=== PATIENT | male | born 1970 | race Asian ===

== ENCOUNTER 2017-01-23 10:21 | Inpatient (IN) | payer MEDICARE, OTHER ==
[~2017-01-23] VITALS: Ht 167.6 cm; Wt 104.3 kg
[2017-01-23 12:00] VITALS: BP 157/93
--- NOTE | 2017-01-23 13:04 | History & Physical ---
History and Physical History & Physicial Vital Signs -Extended Height: 66 inches Weight: 230.5 pounds Temperature: 98.6 degrees F (oral) Pulse rate: 88 /min Pulse rhythm: regular Respirations: 12 /min O2 Sat: 94% Blood Pressure: 155/94 mm Hg Calculations Body Mass Index: 37.34 Body Surface Area (m2): 2.13 History of Present Illness Hx. Source: patient Primary complaint: Patient is here for follow up and evaluation Duration: 3-4 days Trend of sx: waxes and wanes Fever: low grade Treatment: Tylenol Trend of Tx: temporary relief Additional HPI: 46 year old male patient presents today complaining of upper quadrant pain, left testicular pain, lower back pain, chills and fever after urinating. He admits to fever getting worse after voiding. he had an extensive work up including CT and testicular ultrasound which were notable for UVJ stone and mild hydronephrosis. Active Medications (reviewed today): TAMSULOSIN HCL 0.4 MG CAPS (TAMSULOSIN HCL) 1 tab po qd OXYCODONE-ACETAMINOPHEN 10-325 MG ORAL TABS (OXYCODONE-ACETAMINOPHEN) 1 tab q6hr FLUTICASONE PROPIONATE 50 MCG/ACT SUSP (FLUTICASONE PROPIONATE) 2 spray to each nostrils daily Current Allergies: No known allergies Past History Past Medical History (reviewed - no changes required): cornea degeneration sinus disease left hydroureteronephrosis with small calculus left obstructive sleep apnea-off cpap therapy hx migraines Asthma (methacholine positive) sinusitis Surgical History (reviewed - no changes required): laser surgery x 10 PRK left eye x 2 PRK right eye x 2 lasic on right eye x 3 lasic/prk x 2 right eye 06/2011 cervical fusion Tonsilectomy and uvulopalatoplasty Deviated septum Family History (reviewed - no changes required): Jvhgik-vevka-sijtt cancer, Diabetes Mellitus Qvwocd-kyumr-ohdymau grandmother (maternal)-gastro disease uncle (paternal) alzheimer's disease Social History (reviewed - no changes required): single; no children; lives with mother; patient is disabled Risk Factors: Years Since Last Quit: 9 Caffeine use: 1 drinks per day Alcohol use: yes Previous Tobacco Use: Signed On - 12/13/2016 Smoked Tobacco Use: Former smoker Cigarettes: Yes -- 1 1/2 pack(s) per day, Year started: 1983 Year quit: 2007 Years Since Last Quit: 9 years, 5 months, 25 days Caffeine use: 1 drinks per day Review of Systems General: see HPI Eyes: cornea disorder Ear/Nose/Throat: See HPI Cardiovascular: Denies chest pain, palpitations, syncope, dyspnea on exertion, orthopnea, PND, peripheral edema Respiratory: Shortness of breath sleep apnea Gastrointestinal: Denies nausea, vomiting, diarrhea, constipation, change in bowel habits, abdominal pain, melena, hematochezia, jaundice Genitourinary: See HPI Musculoskeletal: cervical disc disease Skin: denies rash, itching, dryness, suspicious lesions Neurologic: denies transient paralysis, weakness, paresthesias, seizures, syncope, tremors, vertigo Psychiatric: denies depression, anxiety, memory loss, mental disturbance, suicidal ideation, hallucinations, paranoia Endocrine: denies cold intolerance, heat intolerance, polydipsia, polyphagia, polyuria, weight change Hematologic/Lymphatic: denies abnormal bruising, bleeding, enlarged lymph nodes Allergic/Immunologic: denies urticaria, hay fever, persistent infections, HIV exposure Physical Exam General Appearance: well nourished, well hydrated, no acute distress obese Respiratory Respiratory Effort: no intercostal retractions or use of accessory muscles Palpation: normal fremitus Auscultation: no rales, rhonchi, or wheezes Cardiovascular Palpation: no thrill or palpable murmurs, no displacement of PMI Auscultation: S1, S2, no murmur, rub, or gallop Carotid arteries: pulses 2+, symmetric, no bruits Peripheral Circulation: no cyanosis, clubbing, edema, or varicosities Gastrointestinal Abdomen: soft, non-tender, no masses, bowel sounds normal Liver and Spleen: no flank tenderness [Lab Results Review] Assessment New Problems: Dx of HYDRONEPHROSIS (ICD-591) Onset: 01/23/2017 Dx of Fever with chills (ICD-780.60) Onset: days Dx of Chills (ICD-780.64) Onset: days Dx of Abdominal pain, right upper quadrant (ICD-789.01) Onset: days Plan New medications: TAMSULOSIN HCL 0.4 MG CAPS -- 1 tab po qd OXYCODONE-ACETAMINOPHEN 10-325 MG ORAL TABS -- 1 tab q6hr Additional Plan Comments: MAINTAIN HYDRATION HAS PAIN MEDICATIONS WILL NEED UROLOGY FOLLOW UP IMAGING REVIEWED FROM [facility] CHECK RENAL US FOR HYDRONEPHROSIS MARU MORENO Jan 23, 2017 13:04
[2017-01-23 14:46] LABS: BASOPHILS % (AUTO) 1.7 % (0.0-2.0); EOSINOPHILS % (AUTO) 1.3 % (0.0-3.0); LYMPHOCYTES % (AUTO) 24.1 % (20.0-45.0); MEAN CORPUSCULAR HEMOGLOBIN 32.8 PG (27.0-31.0); MEAN CORPUSCULAR HGB CONC 34.2 G/DL (32.0-36.0); MEAN CORPUSCULAR VOLUME 96 FL (80-99); MEAN PLATELET VOLUME 6.4 FL (6.5-10.1); MONOCYTES % (AUTO) 7.1 % (1.0-10.0); NEUTROPHILS % (AUTO) 65.9 % (45.0-75.0); PLATELET COUNT 250 K/UL (150-450); RED BLOOD COUNT 4.66 M/UL (4.70-6.10); RED CELL DISTRIBUTION WIDTH 10.7 % (11.6-14.8)
[2017-01-23 15:08] LABS: ANION GAP 20 (5-15); CALCIUM 9.1 mg/dL (8.6-10.2); CARBON DIOXIDE 23 mEQ/L (20-30); CHLORIDE 100 mEQ/L (98-107); CREATININE 1.1 mg/dL (0.7-1.2); GLOMERULAR FILTRATION RATE > 60 mL/min (>60); HEMOLYSIS 5; POTASSIUM 3.8 mEQ/L (3.4-4.9); SODIUM 143 mEQ/L (135-145)
[2017-01-23 16:00] VITALS: BP 151/68
[2017-01-23] MEDS ORDERED: PERCOCET 10-321 EACH ORAL (18:17)
[2017-01-23] MEDS ORDERED: TAMSULOSIN HCL0.4 MG ORAL (18:17)
[2017-01-23 18:59] LABS: APPEARANCE,URINE CLEAR; KETONES,URINE 3+ (NEGATIVE); LEUKOCYTE ESTERASE ,URINE NEGATIVE (NEGATIVE); NITRITE,URINE NEGATIVE (NEGATIVE); PH,URINE 7 (4.5-8.0); PROTEIN,URINE NEGATIVE (NEGATIVE); UROBILINOGEN,URINE 8 MG/DL (0.0-1.0)
[2017-01-23 19:09] LABS: BACTERIA,URINE FEW /HPF; RBC,URINE 0-2 /HPF (0 - 0); WBC,URINE 0-2 /HPF (0 - 0)
[2017-01-23 20:00] VITALS: BP 128/93
[2017-01-23] MEDS: Tamsulosin 0.4mg cap ORAL SCH (21:09)
[2017-01-24] VITALS (7 sets, daily range): BP systolic 90–150; BP diastolic 73–96
--- NOTE | 2017-01-24 08:20 | General Progress Note ---
Assessment/Plan Assessment/Plan UVJ stone hydronephrosis flank pain chills ALAN PLAN care noted IV hydration Iv antibiotics pain management impression, plan, and exam edited and reviewed in detail care discussed with RN Subjective Allergies: Coded Allergies: No Known Allergies (Unverified , 01/23/17) Subjective care noted d/w urology still with some pain Objective Last 24 Hour Vital Signs Date Time Temp Pulse Resp B/P Pulse Ox O2 Delivery O2 Flow Rate FiO2 01/24/17 04:00 97.6 82 18 117/79 97 Room Air 01/24/17 03:21 97.9 01/24/17 00:00 97.9 58 18 128/93 98 Room Air 01/23/17 20:00 97.0 58 20 128/93 97 Room Air 01/23/17 16:00 97.3 77 20 151/68 96 Room Air 01/23/17 12:00 98.1 79 20 157/93 94 Room Air Intake and Output 01/23/17 01/24/17 19:00 07:00 Intake Total 500 ml 2800 ml Balance 500 ml 2800 ml Intake Oral 200 ml 1600 ml IV Total 300 ml 1200 ml # Voids 2 6 Laboratory Tests 01/23/17 14:15: White Blood Count 7.0, Red Blood Count 4.66L, Hemoglobin 15.3, Hematocrit 44.6, Mean Corpuscular Volume 96, Mean Corpuscular Hemoglobin 32.8H, Mean Corpuscular Hemoglobin Concent 34.2, Red Cell Distribution Width 10.7L, Platelet Count 250, Mean Platelet Volume 6.4L, Neutrophils (%) (Auto) 65.9, Lymphocytes (%) (Auto) 24.1, Monocytes (%) (Auto) 7.1, Eosinophils (%) (Auto) 1.3, Basophils (%) (Auto ) 1.7, Sodium Level 143, Potassium Level 3.8, Chloride Level 100, Carbon Dioxide Level 23, Anion Gap 20H, Blood Urea Nitrogen 8, Creatinine 1.1, Estimat Glomerular Filtration Rate > 60, Glucose Level 125H, Calcium Level 9.1 01/23/17 17:30: Urine Color Yellow, Urine Appearance Clear, Urine pH 7, Urine Specific [place] 1.005, Urine Protein Negative, Urine Glucose (UA) Negative, Urine Ketones 3+H, Urine Occult Blood Negative, Urine Nitrite Negative, Urine Bilirubin Negative, Urine Urobilinogen 8H, Urine Leukocyte Esterase Negative, Urine RBC 0-2H, Urine WBC 0-2, Urine Squamous Epithelial Cells None, Urine Bacteria Few Height (Feet): 5 Height (Inches): 6.00 Weight (Pounds): 230 Objective WDWN NAD clear breath sounds bilaterally without rhonchi or wheeze [id number] without MRG NABS nontender no HSM no CCE nonfocal MARU MORENO Jan 24, 2017 08:20
--- NOTE | 2017-01-24 11:31 | Consultation ---
DATE OF CONSULTATION: 01/24/2017 UROLOGY CONSULTATION ATTENDING/CONSULTING PHYSICIAN: Prashanth Montelongo M.D. CHIEF COMPLAINT/HISTORY OF PRESENT ILLNESS: I was asked by Dr. Montelongo to evaluate this very pleasant, 46-year-old gentleman regarding a history of a left UVJ stone with hydronephrosis and colic secondary to same. Briefly, the patient reports having developed left-sided abdominal and testicular pain on . He was seen at [facility] where workup with a CT scan, reportedly revealed a small stone in the left UVJ with hydronephrosis and colic secondary to same. He was eventually discharged home but continued to not feel well. He returned to [facility] and was again sent home. He later developed some subjective fevers and chills and saw Dr. Montelongo in the office. He was instructed to come here and be admitted for evaluation of the same. As such, I was asked to evaluate the patient. PAST MEDICAL HISTORY: 1. Chronic sinusitis. 2. Obstructive sleep apnea. 3. Migraine headaches. 4. Asthma. 5. Kidney stones. 6. Corneal degeneration. PAST SURGICAL HISTORY: 1. Multiple bilateral eye surgeries. 2. Cervical fusion. 3. Tonsillectomy and uvulopalatoplasty. 4. Deviated septal surgery. MEDICATIONS: Please see chart for current medications administration details. ALLERGIES: No known drug allergies. SOCIAL HISTORY: Previous smoker, stopped approximately nine years ago. No history of drug use. Drinks alcohol socially. FAMILY HISTORY: Notable for a gastrointestinal disease in his grandmother, Alzheimer disease in his uncle, and diabetes in his mother. REVIEW OF SYSTEMS: A 12-system review of systems essentially unremarkable outside of what was described above. PHYSICAL EXAMINATION: GENERAL: The patient is a middle-aged gentleman, awake, alert, pleasant, oriented x4. No immediate distress. HEENT: NC/AT. EOMI. Oropharynx clear. NECK: Supple. Full range of motion. CHEST: Within normal limits. ABDOMEN: Soft, nontender, and nondistended. EXTREMITIES: Warm and well perfused. No cyanosis, clubbing or edema. BACK: Left CVA/lower back tenderness to percussion. GENITOURINARY: Reveals a normal male phallus. No discharge, lesions or curvature. There are bilateral descended testes and cord structures with no masses or tenderness to palpation. LABORATORY DATA: White blood cell count 7.0, hematocrit 44.6, and platelets 250,000. Sodium 143, potassium 3.8, chloride 100, bicarbonate 23, BUN 8, creatinine 1.1, and glucose 125. Calcium 9.1. Urinalysis, specific gravity 1.005, pH 7.0. Dip test notable for 3+ ketones. Microanalysis essentially unremarkable. ASSESSMENT AND PLAN: In summary, the patient is a 46-year-old gentleman with a history of kidney stones presenting with left-sided abdominal pain and colic secondary to a left UVJ stone. He was seen at [facility] twice for this and sent home. In the interim, he has developed some subjective fevers and chills and now presents regarding the same. Physical exam reveals left CVA/lower back tenderness. The testicles within normal limits and the testicular pain appears to be referred pain from the stone. Laboratory data is essentially unremarkable. Diagnostic imaging reveals a left UVJ stone for which I do not currently have the report. I discussed these findings today with the patient at the bedside. I am going to add Toradol to his regimen in an effort to improve his pain control. Additionally, we will have him continue to hydrate significantly and in attempt to help pass the stone. He will be continued on Flomax. I am also going to add Rocephin 1 g IV daily given his fevers and chills in an effort to prevent any further urinary tract infection. The risks and benefits of stone extraction were discussed with the patient at bedside today including but not limited to infection, bleeding, inability to reach or remove the stone, bladder or ureteral injury, perforation or avulsion and a need for further measures. He understands and informed consent was obtained. We will keep the patient NPO past midnight in case the stone does not pass, and we need to go remove it with ureterostomy, laser lithotripsy and possible double-J stent placement. Thank you for allowing me to participate in the care of this nice gentleman. Please do not hesitate to contact me for any questions that you may further have regarding his care. I will be happy to continue to follow him with you. Thien Galvan M.D. DR: NURY JOB#: [id number] CC:
[2017-01-24] MEDS: Ketorolac 30mg Inj IV SCH ×2 (12:00→18:00)
--- NOTE | 2017-01-24 12:27 | Anethesia Preoperative Eval ---
Anesthesia Pre-op PMH/ROS General Date of Evaluation: Jan 24, 2017 Time of Evaluation: 12:21 Anesthesiologist: Kim ASA Score: ASA 2 Mallampati Score Class I : Soft palate, uvula, fauces, pillars visible Class II: Soft palate, uvula, fauces visible Class III: Soft palate, base of uvula visible Class IV: Only hard plate visible Mallampati Classification: Class III Surgeon: Mandy Diagnosis: L kidney stone Surgical Procedure: Cysto,retrograde pyelogram stent placement Anesthesia History: none Social History: smoking - h/o Family History: no anesthesia problems Allergies: Coded Allergies: No Known Allergies (Unverified , 01/23/17) Medications: see eMAR Past Medical History Cardiovascular: Denies: CAD, HTN, HI, arrhythmia, other, valve dz Pulmonary: Reports: ALAN, Denies: COPD, asthma, other Gastrointestinal/Genitourinary: Reports: GERD, other - L kidney stone, Denies: CRI, ESRD Neurologic/Psychiatric: Denies: CVA, TIA, dementia, depression/anxiety, other Endocrine: Denies: DM, hypothyroidism, other, steroids HEENT: Reports: other - corneal degeneration, Denies: [place] (L), [place] (R), cataract (L), cataract (R), glaucoma Hematology/Immune: Denies: DVT, anemia, bleeding disorder, other Musculoskeletal/Integumentary: Denies: DDD, DJD, OA, RA, edema, other Other: obesity PMH Narrative: as above, admitted for acute L back pain fever. PSxH Narrative: T&A uvuloplasty, cervical spine fusion Anesthesia Pre-op Phys. Exam Physician Exam Last Vital Signs Date Time Temp Pulse Resp B/P Pulse Ox O2 Delivery O2 Flow Rate FiO2 01/24/17 11:18 98.1 84 15 109/73 97 Room Air Neurologic: CN 2-12 intact Cardiovascular: RRR Respiratory: CTA Gastrointestinal: other - obesity, some tederness on the L side Airway Exam Mallampati Score: Class III MO: limited Neck: short ROM: full Teeth: intact Dentures: no lower, no upper Anesthesia Pre-op A/P Labs Hematology Test 01/23/17 14:15 White Blood Count 7.0 K/UL (4.8-10.8) Red Blood Count 4.66 M/UL (4.70-6.10) L Hemoglobin 15.3 G/DL (14.2-18.0) Hematocrit 44.6 % (42.0-52.0) Mean Corpuscular Volume 96 FL (80-99) Mean Corpuscular Hemoglobin 32.8 PG (27.0-31.0) H Mean Corpuscular Hemoglobin Concent 34.2 G/DL (32.0-36.0) Red Cell Distribution Width 10.7 % (11.6-14.8) L Platelet Count 250 K/UL (150-450) Mean Platelet Volume 6.4 FL (6.5-10.1) L Neutrophils (%) (Auto) 65.9 % (45.0-75.0) Lymphocytes (%) (Auto) 24.1 % (20.0-45.0) Monocytes (%) (Auto) 7.1 % (1.0-10.0) Eosinophils (%) (Auto) 1.3 % (0.0-3.0) Basophils (%) (Auto) 1.7 % (0.0-2.0) Chemistry Test 01/23/17 14:15 Sodium Level 143 mEQ/L (135-145) Potassium Level 3.8 mEQ/L (3.4-4.9) Chloride Level 100 mEQ/L (98-107) Carbon Dioxide Level 23 mEQ/L (20-30) Anion Gap 20 (5-15) H Blood Urea Nitrogen 8 mg/dL (7-23) Creatinine 1.1 mg/dL (0.7-1.2) Estimat Glomerular Filtration Rate > 60 mL/min (>60) Glucose Level 125 mg/dL (74-106) H Calcium Level 9.1 mg/dL (8.6-10.2) Risk Assessment & Plan Assessment: ASA 2 Plan: GA with LMA vs ETT Status Change Before Surgery: No Pre-Antibiotics Drug: as scheduled NABEEL SALAZAR M.D. Jan 24, 2017 12:27
[2017-01-24] MEDS: cefTRIAXone 1gm/D5W 55ml IVPB SCH ×2 (13:25)
[2017-01-24] MEDS ORDERED: Oxycodone/Acetaminophen 5-325 ORAL PRN (14:45)
--- NOTE | 2017-01-24 15:14 | Diagnostic Imaging Report ---
Indications: Abnormal renal function tests, nephrolithiasis Technique: Transabdominal real-time grayscale and duplex Doppler imaging of the kidneys, retroperitoneum, and urinary bladder was performed Findings: Comparison: None Right kidney measures 10 cm in length. Normal contour, echotexture, cortical thickness. No stones, other focal lesions, hydronephrosis, or obvious perinephric abnormalities. Left kidney measures 11.2 cm in length. Normal contour, echotexture, cortical thickness. Contains several small echogenic foci with questionable shadowing. No additional focal lesions, hydronephrosis, or obvious perinephric abnormalities. The intrahepatic portion of inferior vena cava is patent and normal caliber. The urinary bladder is mildly distended without obvious abnormality. Impression: Suggestion of nonobstructive left nephrolithiasis Sonographically unremarkable right kidney
[2017-01-24] MEDS ORDERED: Tubing IV Secondary IV ONE (15:45)
[2017-01-24] MEDS: Zolpidem 5mg tab ORAL PRN (20:31)
[2017-01-24] MEDS: Tamsulosin 0.4mg cap ORAL SCH (20:31)
[2017-01-25] VITALS (12 sets, daily range): BP systolic 129–175; BP diastolic 74–99
[2017-01-25] MEDS: Ketorolac 30mg Inj IV SCH ×4 (06:00→18:00)
--- NOTE | 2017-01-25 09:32 | General Progress Note ---
Assessment/Plan Assessment/Plan UVJ stone hydronephrosis flank pain chills ALAN PLAN care noted IV hydration Iv antibiotics- may be able to dc pain management defer to urology for final intervention impression, plan, and exam edited and reviewed in detail care discussed with RN Subjective Allergies: Coded Allergies: No Known Allergies (Unverified , 01/23/17) Subjective care noted d/w urology pain controlled Objective Last 24 Hour Vital Signs Date Time Temp Pulse Resp B/P Pulse Ox O2 Delivery O2 Flow Rate FiO2 01/25/17 08:00 97.7 68 20 140/99 96 Room Air 01/25/17 04:00 97.7 64 18 158/98 96 Room Air 01/25/17 00:00 97.8 68 18 141/97 98 Room Air 01/24/17 20:00 98.0 80 18 140/90 98 Room Air 01/24/17 15:47 98.4 62 16 150/90 96 Room Air 01/24/17 11:18 98.1 84 15 109/73 97 Room Air Intake and Output 01/24/17 01/25/17 19:00 07:00 Intake Total 2200 ml 2000 ml Output Total 1660 ml 850 ml Balance 540 ml 1150 ml Intake Oral 1200 ml 500 ml IV Total 1000 ml 1500 ml Output Urine Total 1660 ml 850 ml # Voids 4 3 Height (Feet): 5 Height (Inches): 6.00 Weight (Pounds): 230 Objective WDWN NAD clear breath sounds bilaterally without rhonchi or wheeze [id number] without MRG NABS nontender no HSM no CCE nonfocal MARU MORENO Jan 25, 2017 09:32
[2017-01-25] MEDS: cefTRIAXone 1gm/D5W 55ml IVPB SCH ×2 (13:45)
[2017-01-25] MEDS ORDERED: Iothalamate Meglumine 60% 30ML INJ ONE (15:42)
[2017-01-25] MEDS ORDERED: Propofol 10mg/ml 20ml IV ONE ×2 (15:42→17:00)
[2017-01-25] MEDS ORDERED: Dexamethasone 4mg/ml vial ONE (17:00)
[2017-01-25] MEDS ORDERED: Lidocaine 1% MPF 10mg/ml 5ml ONE (17:00)
[2017-01-25] MEDS ORDERED: Midazolam 2mg/2ml Inj ONE (17:00)
[2017-01-25] MEDS ORDERED: Sterile Water Irrig 1000ml IRRIG ONE (17:00)
[2017-01-25] MEDS ORDERED: LR 1000ml ONE (17:00)
[2017-01-25] MEDS ORDERED: fentaNYL 100 mcg/2 mL IV ONE (17:00)
--- NOTE | 2017-01-25 17:15 | Pre-Procedure Note/Attestation ---
Pre-Procedure Note/Attestation Complete Prior to Procedure Planned Procedure: left Procedure Narrative: Ureteroscopy, possible laser lithotripsy, possible JJ stent placement, cystoscopy and fluoroscopy Indications for Procedure Pre-Operative Diagnosis: Left ureteral stone/ renal colic Attestation I attest that I discussed the nature of the procedure; its benefits; risks and complications; and alternatives (and the risks and benefits of such alternatives ), prior to the procedure, with the patient (or the patient's legal inside outside sales representative). I attest that, if there was a reasonable possibility of needing a blood transfusion, the patient (or the patient's legal inside outside sales representative) was given the [facility] standardized written summary, pursuant to the [place] Blood Safety Act ([place] Health and Safety Code # 1645, as amended). I attest that I re-evaluated the patient just prior to the surgery and that there has been no change in the patient's H&P, except as documented below: Thien Galvan M.D. Jan 25, 2017 17:15
[2017-01-25] MEDS ORDERED: Sterile Water For Irrig 2000ml IRRIG ONE (17:25)
[2017-01-25] MEDS ORDERED: NS Irrig 2000ml IRRIG ONE (17:25)
--- NOTE | 2017-01-25 18:04 | Operative Note - PDOC ---
Operative Note Operative Note Date of Operation/Procedure: Jan 25, 2017 Pre-op Diagnosis: Left ureteral stone/ renal colic Procedure: L ureteroscopy (diagnostic), JJ stent placement, cystoscopy and fluoroscopy Post-op Diagnosis: Passed L ureteral stone with edema/ inflammation. Surgeon: Mandy Anesthesiologist: Federico Anesthesia: general Specimen: none Complications: none Condition: stable Fluids: IV crystalloid only Estimated Blood Loss: none Drains: other Implant(s) used?: Yes Indications for Procedure L ureteral stone/ colic Thien Galvan M.D. Jan 25, 2017 18:04
[2017-01-25] MEDS ORDERED: LR 1000ml 1,000 ML IVLG SCH (18:14)
--- NOTE | 2017-01-25 18:14 | Immediate Post-Op Evaluation ---
Immediate Post-Op Evalulation Immediate Post-Op Evalulation Procedure: Cystoscopy, left ureteroscopy, left J stent placement Date of Evaluation: Jan 25, 2017 Time of Evaluation: 18:16 IV Fluids: 500 Blood Products: 0 Estimated Blood Loss: 0 Urinary Output: 0 Blood Pressure Systolic: 168 Blood Pressure Diastolic: 95 Pulse Rate: 81 Respiratory Rate: 16 O2 Sat by Pulse Oximetry: 100 Temperature (Fahrenheit): 97.4 Pain Score (1-10): 0 Nausea: No Vomiting: No Complications 0 Patient Status: awake, reacts, patent, none Hydration Status: adequate Drug: Rocephin Given Within 1 Hr of Incision: Yes SANDY OCHOA M.D. Jan 25, 2017 18:14
[2017-01-25] MEDS ORDERED: fentaNYL 100 mcg/2 mL IV PRN (18:15)
[2017-01-25] MEDS ORDERED: Hydromorphone 0.5mg/0.5ml inj IVP PRN (18:15)
[2017-01-25] MEDS ORDERED: DiphenhydrAMINE 50mg/ml Inj IVP PRN (18:15)
[2017-01-25] MEDS: Tamsulosin 0.4mg cap ORAL SCH (20:52)
[2017-01-25] MEDS: Zolpidem 5mg tab ORAL PRN (20:52)
--- NOTE | 2017-01-25 23:00 | Operative Note - Dictated ---
DATE OF OPERATION: 01/25/2017 PREOPERATIVE DIAGNOSIS: Left distal ureteral stone with hydronephrosis and colic secondary to same. POSTOPERATIVE DIAGNOSIS: Passed stone with inflammation and edema at the site of previous for entrapment of the stone. PROCEDURE PERFORMED: Left ureterostomy-diagnostic double-J stent placement, cystoscopy and fluoroscopy. SURGEON: Thien Galvan M.D. PHOTOGRAPHIC ENLARGER OPERATOR: None. MANZO: Dr. St. ANESTHESIA: General/LMA ANESTHESIOLOGIST: Dr. Caballero, Attending. ESTIMATED BLOOD LOSS: Minimal. IV FLUIDS: Intravenous crystalloid only. DRAINS: Tubes and catheters 6-Liberian x 24 centimeter double-J stent left indwelling. SPECIMENS: None. COMPLICATIONS: None. OPERATIVE INDICATION: The patient is a 46-year-old gentleman with a history of a left distal ureteral stone with hydronephrosis and colic secondary to same. He was seen at [facility] where CAT scan revealed the same. He had continued ongoing discomfort and pain secondary to same and as such was admitted to the [facility] for the same. After evaluation and consultation with me, he elected to undergo the procedure as described above. Once medical clearance is obtained, he was scheduled this procedure at [facility] on 01/25/2017. OPERATIVE NOTE IN DETAIL: The patient was brought to the operative room, placed on table supine position. General anesthesia was induced. Once the patient had his LMA placed, he was repositioned dorsal lithotomy, draped and prepped in usual sterile fashion. Using a semi-rigid ureteral scope, the patient's urethral meatus was calibrated. The scope was passed along the length of the urethra and prostate, these are within normal limits. The bladder was then entered and inspected. There is no evidence of masses tumors or stones and both ureteral orifices were identified. Attention was turned to the left ureteral orifice, into which a 0.035 Glidewire was cannulated and passed up into the left renal collecting system with no difficulty. Once in place, the wire was kept as a safety wire and the ureteroscope was passed again into the bladder and used to pass a second wire up into the left renal collecting system. The scope was then passed over the second wire into the distal ureter. There was an area of significant edema and inflammation, which is difficult to navigate pass, but eventually the scope passed beyond it and into healthy normal looking ureter. There was no evidence of any stone at the spot of inflammation nor just beyond it. The ureteroscope was then easily advanced all the way up into the renal pelvis without any difficulty. There was no abnormalities noted on ascending ureteroscopy. The renal pelvis appeared within normal limits. A descending ureteroscopy again revealed no abnormalities within the ureter except inflammation and edema of the distal ureter without evidence of any stone. Dr. St proctored this case and he agreed that the stone appeared to have passed. The ureteroscope was removed. The cystoscope was passed into the bladder and the safety wire was used to pass a 6-Liberian x 24 centimeter double-J stent in the left renal collecting system with a concomitant fluoroscopically within the kidney and cystoscopically within the bladder. Once this was in place, the bladder was evacuated through the scope and the scope was removed. The patient taken out of dorsolithotomy and placed back in supine position. He was cleaned, dry and dressed. He was awakened and extubated in the operative room and transferred to recovery in stable condition. I was present and scrubbed for the entire duration of the case. All needle, sponge, and instrument counts reported correct. Thien Galvan M.D. DR: CASEY JOB#: [id number] CC:
[2017-01-26] VITALS: BP 152/81
[2017-01-26] MEDS: Ketorolac 30mg Inj IV SCH ×3 (00:45→12:00)
[2017-01-26 08:15] VITALS: BP 160/103
--- NOTE | 2017-01-26 11:02 | 48 Hour Post Anesthesia Eval ---
Post Anesthesia Evaluation Procedure: Cystoscopy, left ureteroscopy, left J stent placement Date of Evaluation: Jan 26, 2017 Time of Evaluation: 06:50 Blood Pressure Systolic: 152 0: 81 Pulse Rate: 69 Respiratory Rate: 20 Temperature (Fahrenheit): 98.2 O2 Sat by Pulse Oximetry: 96 Airway: patent Nausea: No Vomiting: No Pain Intensity: 0 Hydration Status: adequate Cardiopulmonary Status: at baseline Mental Status/LOC: patient returned to baseline Post-Anesthesia Complications: 0 Follow-up care needed: N/A - further care as per primary team SANDY OCHOA M.D. Jan 26, 2017 11:02
[2017-01-26 11:52] VITALS: BP 164/81
[2017-01-26 12:45] VITALS: BP 152/98
--- NOTE | 2017-01-26 13:08 | General Progress Note ---
Assessment/Plan Assessment/Plan UVJ stone hydronephrosis flank pain chills ALAN Passed stone with inflammation and edema at the site of previous for entrapment of the stone. Left ureterostomy-diagnostic double-J stent placement, cystoscopy and fluoroscopy. PLAN care noted tylenol for pain urology follow up pain management defer to urology for final intervention impression, plan, and exam edited and reviewed in detail care discussed with RN Subjective Allergies: Coded Allergies: No Known Allergies (Unverified , 01/23/17) Subjective care noted d/w urology - cleared for discharge pain controlled Objective Last 24 Hour Vital Signs Date Time Temp Pulse Resp B/P Pulse Ox O2 Delivery O2 Flow Rate FiO2 01/26/17 12:45 67 152/98 01/26/17 11:52 98.8 74 22 164/81 95 Room Air 01/26/17 11:02 69 20 96 01/26/17 08:15 97.3 80 21 160/103 97 Room Air 01/26/17 00:00 98.2 69 20 152/81 96 Room Air 01/25/17 20:00 97.9 61 20 156/91 93 Room Air 01/25/17 18:57 98.0 56 20 138/85 99 Room Air 01/25/17 18:48 68 20 142/92 97 Room Air 01/25/17 18:41 61 20 153/95 97 Room Air 01/25/17 18:21 57 20 168/96 100 Simple Mask 8.0 01/25/17 18:16 79 20 175/97 100 Simple Mask 8.0 01/25/17 18:14 81 16 100 01/25/17 18:11 97.4 79 20 168/95 100 Simple Mask 8.0 01/25/17 16:00 97.9 94 20 129/74 98 Room Air 01/25/17 16:00 97.9 94 20 129/74 98 Room Air Intake and Output 01/25/17 01/26/17 19:00 07:00 Intake Total 1905 ml 1150 ml Balance 1905 ml 1150 ml IV Total 1905 ml 1150 ml # Voids 6 8 # Bowel Movements 1 Height (Feet): 5 Height (Inches): 6.00 Weight (Pounds): 230 Objective WDWN NAD clear breath sounds bilaterally without rhonchi or wheeze [id number] without MRG NABS nontender no HSM no CCE nonfocal MARU MORENO Jan 26, 2017 13:08
--- NOTE | 2017-01-27 08:22 | Discharge Summary ---
Discharge Summary Hospital Course Date of Admission Jan 23, 2017 at 11:27 Date of Discharge Jan 26, 2017 at 12:50 Admitting Diagnosis HPI Emanuel Smart is a 46 year old male who was admitted on Jan 23, 2017 at 11:27 for Pyelonephritis Hospital Course [id number] Discharge Discharge Disposition Patient was discharged to Home (01) Discharge Diagnoses: Caterina Sanchez NP Jan 27, 2017 08:22
--- NOTE | 2017-01-27 09:57 | Diagnostic Imaging Report ---
Indication: PAIN pain, intraoperative Technique: Digital intraoperative images Comparison: None Findings: Intraoperative images document left nephroureteral stent placement Impression: Intraoperative imaging, as described
--- NOTE | 2017-01-27 10:15 | Discharge Summary 2 SIG ---
DATE OF ADMISSION: 01/23/2017 DATE OF DISCHARGE: 01/26/2017 [employer] ASSISTANT: Thien Galvan M.D. BRIEF HOSPITAL COURSE: The patient is a 46-year-old male, who presented to the office complaining of upper quadrant pain, left testicular pain, lower back pain, chills, and fever with fever getting worse. He had extensive workup including CT and testicular ultrasound which were notable for ureterovesical junction stone and mild hydronephrosis. He was a direct admit and was admitted to medical floor. He was given IV hydration and was started on IV antibiotic ceftriaxone. Dr. Galvan was consulted. The patient wad work-up at [facility] where a CT scan reported a small stone in the left UVJ with hydronephrosis and colic. He was discharged home on medical therapy, but continued to not feel well. He developed fever and chills. He was instructed to come in to [facility] for further evaluation. Physical examination revealed a left CVA/lower back tenderness. Testicles were within normal limits and testicular pain appears to be referred pain from the stone. He was given pain management and was continued on Flomax. On 01/25/2017, he underwent left ureterostomy with diagnostic double-J stent placement. Cystoscopy, fluoroscopy, and renal ultrasound showed nonobstructive left nephrolithiasis. He eventually passed stone with evidence of inflammation and edema in the site of previous entrapment of the stone. He was eventually discharged home. Advised to follow up as outpatient. FINAL DIAGNOSES: 1. Ureterovesical junction stone. 2. Hydronephrosis. 3. Obstructive sleep apnea. 4. Renal colic secondary to left ureterovesical junction stone. Prashanth Montelongo M.D. I have been assigned to dictate discharge summary on this account and I was not involved in the patient's management. Caterina Sanchez N.P. DR: LAM JOB#: [id number] CC: [id number]
== END 2017-01-26 12:50 | disposition home or self-care (01) | DRG 694 ==
LOC: 4E 11:27
PROC: 0T778DZ Dilation of Left Ureter with Intraluminal Device, Via Natural or Artificial Opening Endoscopic (ICD-10-PCS; principal; 2017-01-25 15:30)
DX: N13.2 Hydronephrosis with renal and ureteral calculous obstruction (principal); G47.33 Obstructive sleep apnea (adult) (pediatric); J45.909 Unspecified asthma, uncomplicated; K21.9 Gastro-esophageal reflux disease without esophagitis; Z87.891 Personal history of nicotine dependence
CPT/HCPCS: 36415; 74420; 76000; 76775; 80048; 81001; 85025; 87040; 87081; 87086; 94003; 94150; J2250; J2405